=== PATIENT | female | born 1995 | race African-American/Black ===

== ENCOUNTER 2016-07-20 18:07 | Emergency (ER) | payer MEDICAID, MEDICARE ==
[~2016-07-20] VITALS: Ht 172.7 cm; Wt 68.0 kg
[2016-07-20 18:16] VITALS: BP 135/65; PULSE 121; RESP 20; TEMP 99.6; O2SAT 100
--- NOTE | 2016-07-20 18:37 | NUR ---
Ambulatory to hallway bed 1
[2016-07-20] MEDS ORDERED: NACL 0.9% 1,000 ML IV ONE (18:45)
[2016-07-20] MEDS ORDERED: ONDANSETRON HCL 4 MG/2 ML VIAL IVP ONE (18:45)
[2016-07-20] MEDS ORDERED: KETOROLAC TROMETHAMINE 30 MG VIAL IVP ONE (18:45)
--- NOTE | 2016-07-20 18:50 | NUR ---
Pt c/o right flank pain radiating around to abdomen since last night, vomited x5 yesterday, nausea today. States urinary discomfort a few days ago with frequency
--- NOTE | 2016-07-20 19:01 | NUR ---
Phleb at bedside for blood draw using 2 pt identifiers.
--- NOTE | 2016-07-20 19:09 | NUR ---
Report given to JOSE Peterson
[2016-07-20 19:15] LABS: HEMATOCRIT 36.4 % (36-48); HEMOGLOBIN 12.3 g/dL (12.0-16.0); MEAN CORPUSCULAR HEMOGLOBIN 29 pg (27-31); MEAN CORPUSCULAR HGB CONC 34 % (32-36); MEAN CORPUSCULAR VOLUME 85 fL (79.0-98.0); PLATELET COUNT (AUTO) 197 K/uL (130-430); RED BLOOD CELL COUNT(AUTO) 4.29 MIL/uL (4.2-6.2); RED CELL DISTRIBUTION WIDTH 12.1 % (9.0-15.0); WHITE BLOOD COUNT (AUTO) 12.3 K/uL (4.8-10.8)
[2016-07-20 19:18] LABS: CALCIUM 8.8 mg/dL (8.4-11.0); CREATININE 0.75 mg/dL (0.55-1.30); POTASSIUM 3.6 mmol/L (3.5-5.1)
[2016-07-20 19:23] LABS: ALBUMIN 4.2 g/dL (3.4-4.8); TOTAL BILIRUBIN 0.8 mg/dL (0.0-1.0); TOTAL PROTEIN, SERUM 7.6 g/dL (6.4-8.3)
[2016-07-20 19:23] LABS: BILIRUBIN,URINE NEGATIVE (NEGATIVE); BLOOD, URINE 1+ (NEGATIVE); CLARITY/URINE HAZY (CLEAR); COLOR,URINE YELLOW (YELLOW); GLUCOSE,URINE NEGATIVE (NEGATIVE); KETONES,URINE NEGATIVE (NEGATIVE); LEUKOCYTE ESTERASE ,URINE 1+ (NEGATIVE); NITRITE, URINE POSITIVE (NEGATIVE); PROTEIN URINE TRACE (NEGATIVE); UROBILINOGEN,URINE 0.2 (0.2-1.0)
[2016-07-20 19:30] LABS: BAND % (MANUAL) 4 % (0-6); LYMPHOCYTES % (MANUAL) 9 % (20-46)
[2016-07-20 19:31] LABS: BASOPHILS % (MANUAL) 0 % (0-2); EOSINOPHILS % (MANUAL) 0 % (0-7); MONOCYTES % (MANUAL) 1 % (0-11)
[2016-07-20 19:45] LABS: BACTERIA,URINE MANY /HPF (None Seen); RBC,URINE 0-3 /HPF (0-3); WBC,URINE 20-50 /HPF (0-3)
[2016-07-20] MEDS ORDERED: ACETAMINOPHEN 500 MG TABLET PO ONE (19:45)
[2016-07-20 19:46] LABS: MUCUS,URINE 2+ /LPF (None Seen)
[2016-07-20] MEDS ORDERED: ACETAMINOPHEN 500 MG TABLET ONE (19:46)
[2016-07-20] MEDS ORDERED: MORPHINE 4 MG/ML INJ. SYRINGE IVP ONE (20:15)
[2016-07-20] MEDS ORDERED: cefTRIAXone 2 GM VIAL ONE (20:17)
[2016-07-20] MEDS ORDERED: HYDROcodone/ACETAMIN 5-325 MG TAB (NORCO/ VICODIN) PO ONE (21:00)
[2016-07-20] MEDS ORDERED: HYDROcodone/ACETAMIN 5-325 MG TAB (NORCO/ VICODIN) ONE (21:04)
[2016-07-20 21:05] VITALS: BP 134/70; PULSE 105; RESP 20; TEMP 99.8; O2SAT 100
--- NOTE | 2016-07-20 21:05 | NUR ---
Patient given written and verbal discharge instructions and verbalizes understanding. ER MD discussed with patient the results and treatment provided. Patient in stable condition. ID arm band removed. IV catheter removed intact and dressing applied, no active bleeding.Rx of Motrin, Zofran and Cipro given. Patient educated on pain management and to follow up with PMD. Pain Scale 6/10. Opportunity for questions provided and answered.
== END 2016-07-20 21:05 | disposition home or self-care (01) ==
LOC: SED 18:07
DX: N10 Acute pyelonephritis (principal); J45.909 Unspecified asthma, uncomplicated
CPT/HCPCS: 36415; 74176; 80053; 81000; 81025; 83690; 85007; 85027; 87040; 87086; 87186; 96361; 96365; 96375; 99285; J0696; J1885; J2270; J2405; J7030; J7060

== ENCOUNTER 2018-06-19 15:27 | Emergency (ER) | payer MEDICAID ==
[~2018-06-19] VITALS: Ht 172.7 cm; Wt 70.3 kg
[2018-06-19 15:37] VITALS: BP_SYST 138
[2018-06-19] MEDS ORDERED: AZITHROMYCIN 250 MG TABLET PO ONE (16:30)
[2018-06-19 16:40] LABS: BILIRUBIN,URINE NEGATIVE (NEGATIVE); BLOOD, URINE NEGATIVE (NEGATIVE); CLARITY/URINE CLEAR (CLEAR); COLOR,URINE YELLOW (YELLOW); GLUCOSE,URINE NEGATIVE (NEGATIVE); KETONES,URINE NEGATIVE (NEGATIVE); LEUKOCYTE ESTERASE ,URINE TRACE (NEGATIVE); NITRITE, URINE NEGATIVE (NEGATIVE); PH,URINE 6.5 (5.0-8.0); PROTEIN URINE NEGATIVE (NEGATIVE); UROBILINOGEN,URINE 0.2 (0.2-1.0)
[2018-06-19] MEDS ORDERED: PHENAZOPYRIDINE HCL 100 MG TABLET PO ONE (16:45)
[2018-06-19 16:46] LABS: BACTERIA,URINE FEW /HPF (None Seen); RBC,URINE 0-3 /HPF (0-3)
[2018-06-19] MEDS ORDERED: metroNIDAZOLE 500 MG TABLET PO ONE (17:00)
[2018-06-19] MEDS ORDERED: ONDANSETRON 4 MG ODT TAB PO ONE (17:30)
[2018-06-19] MEDS ORDERED: KETOROLAC TROMETHAMINE 60 MG/2 ML VIAL IM ONE (18:15)
[2018-06-19 19:05] VITALS: BP_SYST 138
[2018-06-22 09:46] LABS: CHLAMYDIA TRACHOMATIS NAA Negative (Negative)
[2018-06-23 04:07] LABS: NEISSERIA GONORRHOEAE NAA Negative (Negative)
== END 2018-06-19 19:05 | disposition home or self-care (01) ==
LOC: SED 15:27
DX: N73.9 Female pelvic inflammatory disease, unspecified (principal); N39.0 Urinary tract infection, site not specified; R03.0 Elevated blood-pressure reading, without diagnosis of hypertension; J45.909 Unspecified asthma, uncomplicated
CPT/HCPCS: 81000; 81025; 87210; 87491; 87591; 96372; 99284; J1885; Q0162; Q0144

== ENCOUNTER 2018-06-20 21:31 | Emergency (ER) | payer MEDICAID ==
[~2018-06-20] VITALS: Ht 172.7 cm; Wt 70.3 kg
[2018-06-20 21:39] VITALS: BP_SYST 121
[2018-06-20] MEDS ORDERED: NACL 0.9% 1,000 ML IV ONE (22:30)
[2018-06-20] MEDS ORDERED: KETOROLAC TROMETHAMINE 30 MG VIAL IVP ONE (22:30)
[2018-06-20] MEDS ORDERED: ONDANSETRON HCL 4 MG/2 ML VIAL IVP ONE (22:30)
[2018-06-20] MEDS ORDERED: MORPHINE 4 MG/ML INJ. SYRINGE IVP ONE (23:30)
[2018-06-21 00:10] VITALS: BP_SYST 119
== END 2018-06-21 00:10 | disposition home or self-care (01) ==
LOC: SED 21:31
DX: J11.1 Influenza due to unidentified influenza virus with other respiratory manifestations (principal); N39.0 Urinary tract infection, site not specified; R11.2 Nausea with vomiting, unspecified; J45.909 Unspecified asthma, uncomplicated; R03.0 Elevated blood-pressure reading, without diagnosis of hypertension; Z90.49 Acquired absence of other specified parts of digestive tract
CPT/HCPCS: 81002; 81025; 87086; 96374; 96375; 99283; J1885; J2270; J2405

== ENCOUNTER 2018-06-23 08:47 | Inpatient (IN) | payer MEDICAID ==
[~2018-06-23] VITALS: Ht 172.7 cm; Wt 70.3 kg
[2018-06-23 08:52] VITALS: BP_SYST 123
[2018-06-23] MEDS ORDERED: MORPHINE 4 MG/ML INJ. SYRINGE IVP ONE ×2 (10:45→16:30)
[2018-06-23] MEDS ORDERED: MORPHINE 2 MG/ML INJ. SYRINGE IVP ONE ×2 (11:45→13:00)
[2018-06-23] MEDS ORDERED: cefTRIAXone 1 GM in D5W 50 ML IV ONE (11:45)
[2018-06-23] MEDS ORDERED: cefTRIAXone 1 GM VIAL ONE (11:53)
[2018-06-23] MEDS ORDERED: MORPHINE 4 MG/ML INJ. SYRINGE ONE (11:56)
[2018-06-23] MEDS ORDERED: LIDOCAINE VISCOUS 2%, 15 ML UDC MM ONE ×2 (12:15→17:30)
[2018-06-23] MEDS ORDERED: LORazepam 2 MG/ML VIAL (FOR ER USE) IVP ONE (12:30)
[2018-06-23] MEDS ORDERED: KETOROLAC TROMETHAMINE 30 MG VIAL IVP ONE (12:30)
[2018-06-23 12:49] LABS: BASOPHILS % (AUTO) 0.3 % (0.0-2.0); EOSINOPHILS % (AUTO) 0.9 % (0.0-4.0); HEMATOCRIT 40.2 % (36-48); HEMOGLOBIN 13.1 g/dL (12.0-16.0); LYMPHOCYTES # (AUTO) 1.1 K/uL (1.0-5.5); LYMPHOCYTES % (AUTO) 20.2 % (20.5-51.5); MEAN CORPUSCULAR HEMOGLOBIN 29 pg (27-31); MEAN CORPUSCULAR HGB CONC 33 % (32-36); MEAN CORPUSCULAR VOLUME 89 fL (79.0-98.0); MONOCYTES # (AUTO) 0.5 K/uL (0.0-1.0); MONOCYTES % (AUTO) 9.7 % (1.7-9.3); NEUTROPHILS # (AUTO) 3.9 K/uL (1.8-7.7); NEUTROPHILS % (AUTO) 68.9 % (40.0-70.0); PLATELET COUNT (AUTO) 209 K/uL (130-430); WHITE BLOOD COUNT (AUTO) 5.6 K/uL (4.8-10.8)
[2018-06-23 12:57] LABS: CALCIUM 8.5 mg/dL (8.4-11.0); CREATININE 0.73 mg/dL (0.55-1.30); POTASSIUM 3.9 mmol/L (3.5-5.1)
[2018-06-23 13:02] LABS: ALBUMIN 3.4 g/dL (3.4-4.8); TOTAL BILIRUBIN 0.2 mg/dL (0.0-1.0)
[2018-06-23] MEDS ORDERED: ONDANSETRON HCL 4 MG/2 ML VIAL IVP ONE (15:00)
[2018-06-23 15:55] LABS: BILIRUBIN,URINE NEGATIVE (NEGATIVE); BLOOD, URINE NEGATIVE (NEGATIVE); CLARITY/URINE CLEAR (CLEAR); COLOR,URINE YELLOW (YELLOW); GLUCOSE,URINE NEGATIVE (NEGATIVE); KETONES,URINE 2+ (NEGATIVE); LEUKOCYTE ESTERASE ,URINE NEGATIVE (NEGATIVE); NITRITE, URINE NEGATIVE (NEGATIVE); PROTEIN URINE NEGATIVE (NEGATIVE); UROBILINOGEN,URINE 0.2 (0.2-1.0)
[2018-06-23] MEDS ORDERED: ACETAMINOPHEN 500 MG TABLET PO ONE (17:30)
[2018-06-23] MEDS ORDERED: LORazepam 2 MG/ML VIAL IVP ONE (17:30)
[2018-06-23] MEDS ORDERED: LORazepam 2 MG/ML VIAL (FOR ER USE) ONE (17:43)
[2018-06-23] MEDS ORDERED: valACYclovir HCL 500 MG TABLET PO ONE (18:45)
[2018-06-23 19:17] VITALS: BP_SYST 128
[2018-06-23] MEDS ORDERED: ONDANSETRON HCL 4 MG/2 ML VIAL IVP PRN (21:45)
[2018-06-23] MEDS: ACYCLOVIR 400 MG TABLET PO SCH (23:10)
[2018-06-23] MEDS: MEPERIDINE HCL/PF 50 MG/ML AMP IVP PRN (23:19)
[2018-06-23] MEDS ORDERED: ALBUTEROL SULFATE 0.083% 2.5 MG/3 ML VIAL.NEB INH PRN (23:45)
[2018-06-24 00:26] VITALS: BP_SYST 95
[2018-06-24] MEDS: NACL 0.9% 1,000 ML IV SCH ×4 (03:18→22:05)
[2018-06-24] MEDS: MEPERIDINE HCL/PF 50 MG/ML AMP IVP PRN ×4 (03:29→17:51)
[2018-06-24] MEDS: ONDANSETRON HCL 4 MG/2 ML VIAL IVP PRN ×4 (03:54→17:50)
[2018-06-24] MEDS: MORPHINE 4 MG/ML INJ. SYRINGE IVP PRN ×2 (06:14→20:54)
[2018-06-24] MEDS: ACYCLOVIR 400 MG TABLET PO SCH ×3 (06:28→20:54)
[2018-06-24] MEDS ORDERED: valACYclovir HCL 500 MG TABLET PO SCH (07:00)
[2018-06-24 07:32] LABS: CALCIUM 8.1 mg/dL (8.4-11.0); CREATININE 0.66 mg/dL (0.55-1.30); POTASSIUM 3.8 mmol/L (3.5-5.1); TOTAL BILIRUBIN 0.2 mg/dL (0.0-1.0)
[2018-06-24 08:00] VITALS: BP_SYST 111
[2018-06-24 08:08] LABS: BASOPHILS % (AUTO) 0.3 % (0.0-2.0); EOSINOPHILS % (AUTO) 1.2 % (0.0-4.0); HEMATOCRIT 35.4 % (36-48); HEMOGLOBIN 11.7 g/dL (12.0-16.0); LYMPHOCYTES # (AUTO) 1.3 K/uL (1.0-5.5); LYMPHOCYTES % (AUTO) 22.6 % (20.5-51.5); MEAN CORPUSCULAR HEMOGLOBIN 29 pg (27-31); MEAN CORPUSCULAR HGB CONC 33 % (32-36); MEAN CORPUSCULAR VOLUME 89 fL (79.0-98.0); NEUTROPHILS # (AUTO) 3.9 K/uL (1.8-7.7); NEUTROPHILS % (AUTO) 65.9 % (40.0-70.0); PLATELET COUNT (AUTO) 216 K/uL (130-430); RED BLOOD CELL COUNT(AUTO) 3.99 MIL/uL (4.2-6.2); RED CELL DISTRIBUTION WIDTH 12.8 % (9.0-15.0); WHITE BLOOD COUNT (AUTO) 5.9 K/uL (4.8-10.8)
[2018-06-24 08:09] LABS: EOSINOPHILS # (AUTO) 0.1 K/uL (0.0-0.4); MONOCYTES # (AUTO) 0.6 K/uL (0.0-1.0)
[2018-06-24] MEDS: cefTRIAXone 1 GM in D5W 50 ML IV SCH (10:07)
[2018-06-24 10:32] VITALS: BP_SYST 111
[2018-06-24] MEDS ORDERED: ONDANSETRON HCL 4 MG/2 ML VIAL IVP PRN (12:15)
[2018-06-24 12:54] VITALS: BP_SYST 113
[2018-06-24] MEDS: LORazepam 2 MG/ML VIAL IVP PRN (15:59)
[2018-06-24 16:57] VITALS: BP_SYST 120
[2018-06-24 20:00] VITALS: BP_SYST 115
[2018-06-25] VITALS: BP_SYST 118
[2018-06-25] MEDS: MEPERIDINE HCL/PF 50 MG/ML AMP IVP PRN ×4 (00:53→20:18)
[2018-06-25] MEDS: ONDANSETRON HCL 4 MG/2 ML VIAL IVP PRN ×4 (01:06→17:19)
[2018-06-25] MEDS: ACYCLOVIR 400 MG TABLET PO SCH (05:22)
[2018-06-25] MEDS: NACL 0.9% 1,000 ML IV SCH ×2 (05:35→14:38)
[2018-06-25] MEDS: ACYCLOVIR 30 GM OINT TP SCH ×7 (06:00→20:18)
[2018-06-25] MEDS: LORazepam 2 MG/ML VIAL IVP PRN ×3 (06:07→17:46)
[2018-06-25 08:06] VITALS: BP_SYST 116
[2018-06-25] MEDS: cefTRIAXone 1 GM in D5W 50 ML IV SCH (09:03)
[2018-06-25] MEDS ORDERED: MILK OF MAGNESIA 30 ML UDC PO PRN (10:00)
[2018-06-25 12:05] VITALS: BP_SYST 129
[2018-06-25] MEDS: ACYCLOVIR IV 500 MG in D5W 100 ML IV SCH ×2 (14:34→21:28)
[2018-06-25 16:13] VITALS: BP_SYST 109
[2018-06-25 20:00] VITALS: BP_SYST 105
[2018-06-26] MEDS: NACL 0.9% 1,000 ML IV SCH ×4 (00:16→20:15)
[2018-06-26 01:03] VITALS: BP_SYST 103
[2018-06-26] MEDS: ONDANSETRON HCL 4 MG/2 ML VIAL IVP PRN ×3 (03:35→20:06)
[2018-06-26] MEDS: MEPERIDINE HCL/PF 50 MG/ML AMP IVP PRN ×2 (03:36→08:01)
[2018-06-26] MEDS: ACYCLOVIR IV 500 MG in D5W 100 ML IV SCH ×3 (05:20→21:28)
[2018-06-26] MEDS: MORPHINE 4 MG/ML INJ. SYRINGE IVP PRN ×2 (05:21→11:13)
[2018-06-26] MEDS: ACYCLOVIR 30 GM OINT TP SCH ×5 (05:27→18:11)
[2018-06-26] MEDS: cefTRIAXone 1 GM in D5W 50 ML IV SCH (08:00)
[2018-06-26] MEDS: LORazepam 2 MG/ML VIAL IVP PRN ×3 (08:00→20:06)
[2018-06-26 08:43] VITALS: BP_SYST 105
[2018-06-26] MEDS ORDERED: VALA500T PO (10:19)
[2018-06-26 11:27] VITALS: BP_SYST 110
[2018-06-26] MEDS ORDERED: IBUPROFEN 800 MG TABLET PO SCH (14:00)
[2018-06-26 15:34] VITALS: BP_SYST 105
[2018-06-26 20:10] VITALS: BP_SYST 104
[2018-06-27 00:39] VITALS: BP_SYST 113
[2018-06-27] MEDS: ONDANSETRON HCL 4 MG/2 ML VIAL IVP PRN (03:19)
[2018-06-27] MEDS: LORazepam 2 MG/ML VIAL IVP PRN (03:31)
[2018-06-27] MEDS: NACL 0.9% 1,000 ML IV SCH (05:36)
[2018-06-27] MEDS: ACYCLOVIR IV 500 MG in D5W 100 ML IV SCH (05:37)
[2018-06-27] MEDS: ACYCLOVIR 30 GM OINT TP SCH ×2 (05:41→08:30)
[2018-06-27 08:00] VITALS: BP_SYST 124
[2018-06-27] MEDS: cefTRIAXone 1 GM in D5W 50 ML IV SCH (08:29)
[2018-06-28 15:52] LABS: HSV 1 IgG, TYPE SPECIFIC <0.91; HSV 2 IgG, TYPE SPECIFIC <0.91
== END 2018-06-27 10:45 | disposition home or self-care (01) | DRG 531 ==
LOC: SED 08:47 → SMU 17:12
PROVIDERS: ADMIT Internal Medicine; ATTEND Internal Medicine
DX: A60.09 Herpesviral infection of other urogenital tract (principal); B95.1 Streptococcus, group B, as the cause of diseases classified elsewhere; J45.909 Unspecified asthma, uncomplicated; N73.9 Female pelvic inflammatory disease, unspecified; N76.0 Acute vaginitis; N76.5 Ulceration of vagina; N76.4 Abscess of vulva
CPT/HCPCS: 36415; 76856-TC; 80053; 81003; 84702-TC; 85025; 86592; 86694; 86695; 86696; 87070-TC; 87210-TC; 87491; 87591; 96365; 96375; 96376; 99285; J0133; J0696; J1885; J2001; J2060; J2175; J2270; J2405; J7030; J7060

== ENCOUNTER 2018-10-23 22:32 | Emergency (ER) | payer MEDICAID ==
[~2018-10-23] VITALS: Ht 172.7 cm; Wt 65.8 kg
[~2018-10-23 22:32] MED LIST: VALA500T PO
[2018-10-23 22:36] VITALS: BP_SYST 122
[2018-10-23 23:14] LABS: BILIRUBIN,URINE NEGATIVE (NEGATIVE); BLOOD, URINE NEGATIVE (NEGATIVE); CLARITY/URINE CLEAR (CLEAR); COLOR,URINE YELLOW (YELLOW); GLUCOSE,URINE NEGATIVE (NEGATIVE); KETONES,URINE NEGATIVE (NEGATIVE); LEUKOCYTE ESTERASE ,URINE NEGATIVE (NEGATIVE); NITRITE, URINE NEGATIVE (NEGATIVE); PROTEIN URINE NEGATIVE (NEGATIVE); UROBILINOGEN,URINE 0.2 (0.2-1.0)
[2018-10-23 23:26] LABS: BASOPHILS # (AUTO) 0.1 K/uL (0.0-0.2); EOSINOPHILS # (AUTO) 0.3 K/uL (0.0-0.4); HEMATOCRIT 39.3 % (36-48); HEMOGLOBIN 12.7 g/dL (12.0-16.0); LYMPHOCYTES % (AUTO) 43.3 % (20.5-51.5); MEAN CORPUSCULAR HEMOGLOBIN 29 pg (27-31); MEAN CORPUSCULAR HGB CONC 32 % (32-36); MEAN CORPUSCULAR VOLUME 91 fL (79.0-98.0); MONOCYTES # (AUTO) 0.5 K/uL (0.0-1.0); MONOCYTES % (AUTO) 6.7 % (1.7-9.3); NEUTROPHILS # (AUTO) 3.1 K/uL (1.8-7.7); PLATELET COUNT (AUTO) 228 K/uL (130-430); RED BLOOD CELL COUNT(AUTO) 4.33 MIL/uL (4.2-6.2); RED CELL DISTRIBUTION WIDTH 13.8 % (9.0-15.0); WHITE BLOOD COUNT (AUTO) 6.9 K/uL (4.8-10.8)
[2018-10-23 23:34] LABS: BARBITURATE, URINE NEGATIVE (NEG <=200); BENZODIAZEPINE, URINE NEGATIVE (NEG <=150); CANNABINOID, URINE NEGATIVE (NEG <=50); COCAINE, URINE NEGATIVE (NEG <=150); METHAMPHETAMINES SCREEN,URINE NEGATIVE (NEG <=500); OPIATE, URINE NEGATIVE (NEG <=100); PHENCYCLIDINE SCREEN,URINE NEGATIVE (NEG <=25); URINE AMPHETAMINE NEGATIVE (NEG <=500); URINE METHADONE NEGATIVE (NEG <=200); URINE OXYCODONE SCREEN NEGATIVE (NEG <=100)
[2018-10-23 23:35] LABS: UR TRICYCLIC ANTIDEPRESSANTS NEGATIVE (NEG <=300); URINE PROPOXYPHENE SCREEN NEGATIVE (NEG <=300)
[2018-10-23 23:40] LABS: CALCIUM 8.7 mg/dL (8.4-11.0); CREATININE 0.82 mg/dL (0.55-1.30); POTASSIUM 3.6 mmol/L (3.5-5.1)
[2018-10-23 23:44] LABS: INR 1.1 (0.8-1.2); PROTHROMBIN TIME 11.2 SECS (9.5-12.5)
[2018-10-23 23:45] LABS: ALBUMIN 3.7 g/dL (3.4-4.8); TOTAL BILIRUBIN 0.2 mg/dL (0.0-1.0)
[2018-10-24 00:36] VITALS: BP_SYST 122
== END 2018-10-24 00:36 | disposition home or self-care (01) ==
LOC: SED 22:32
DX: R20.2 Paresthesia of skin (principal); J45.909 Unspecified asthma, uncomplicated; Z90.49 Acquired absence of other specified parts of digestive tract
CPT/HCPCS: 36415; 70450-TC; 71045; 80053; 80307; 81003; 81025; 84484; 85025; 85610-TC; 85730-TC; 93005; 99284